=== PATIENT | female | born 2000 | race African-American/Black ===

== ENCOUNTER 2023-09-17 22:15 | Inpatient (IN) | payer OTHER ==
[2023-09-18 00:53] LABS: #Basophils 0.05 10x3/uL (0.0-0.2); #Eosinphils 0.04 10x3/uL (0.0-0.5); #Monocytes 0.84 10x3/uL (0.0-1.1); #Neutrophils 10.34 10x3/uL (1.5-8.4); %Basophils 0.4 % (0.0-2.0); %Eosinophils 0.3 % (0.0-6.0); %Lymphocytes 15.2 % (18.0-47.0); %Monocytes 6.3 % (0.0-10.0); %Neutrophils 77.5 % (40.0-75.0); Hematocrit 35.4 % (34.9-44.5); Hemoglobin 11.9 g/dL (12.0-15.5); Mean Corpuscular HGB CONC 33.6 g/dL (32.0-36.0); Mean Corpuscular Hemoglobin 28.9 pg (27.0-33.0); Mean Corpuscular Volume 85.9 fl (81.6-98.3); Mean Platelet Volume 8.4 fl (7.4-10.4); Platelet Count 335 10x3/uL (150-450); RBC Distribution Width 13.2 % (11.5-14.5); Red Blood Cell (RBC) Count 4.12 10x6/uL (3.90-5.03); White Blood Cell (WBC) Count 13.3 10x3/uL (3.5-10.5)
[2023-09-18 01:06] LABS: Bilirubin Neg (Negative); Blood, Urine 250 (Negative); Clarity Slightly Cloudy (Clear); Glucose, Urine (Dipstick) Normal (Negative); Ketone, Urine Negative (Negative); Leukocyte Negative (Negative); Nitrite Negative (Negative); Protein, Urine (Dipstick) 30 mg/dl (Neg-Trace); Specific Gravity, Urine 1.015 (1.005-1.030); Urobilinogen Normal mg/dL (Less than 2)
[2023-09-18 01:08] LABS: Pregnancy Test - Urine (BHCG) Negative (Negative); Pregu Control Background? CLEAR/WHITE (CLR/WHITE); Pregu Control Bar Appear? YES (CONTROL BAR); Specific Gravity 1.015 (1.002-1.036)
[2023-09-18 01:08] LABS: ALT (SGPT) 52 U/L (8-55); AST (SGOT) 63 U/L (5-34); Albumin 3.9 g/dL (3.5-5.0); Alkaline Phosphatase 50 U/L (40-110); Anion Gap 12 mmol/L (10-20); BUN (Urea Nitrogen) 12 mg/dL (7.0-18.7); Bilirubin, Total 0.3 mg/dL (0.2-1.2); Calc. Creatinine Clearance 0 mL/min (70-130); Calcium 9.3 mg/dL (7.8-10.44); Carbon Dioxide 24 mmol/L (22-29); Chloride 108 mmol/L (98-107); Estimated GFR 105; Globulin 3.5 g/dL (2.4-3.5); Glucose 101 mg/dL (70-105); Potassium 3.7 mmol/L (3.5-5.1); Protein, Total 7.4 g/dL (6.0-8.3); Sodium 140 mmol/L (136-145)
[2023-09-18 01:34] LABS: Bacteria/HPF None Seen HPF (None Seen); CAUTI Indications for Culture Pelvic or flank pain; WBC/HPF 0-3 HPF (0-3)
[2023-09-18 01:35] LABS: Urine Culture Reflex No No
[2023-09-18] MEDS ORDERED: Ondansetron PF 4 MG/2 ML Vial ONE (04:32)
[2023-09-18] MEDS ORDERED: Morphine 4 MG/ML VIAL ONE (04:32)
[2023-09-18 06:53] VITALS: BMI 24.6
[2023-09-18] MEDS ORDERED: Ondansetron ODT 4 MG TAB SL PRN (08:30)
[2023-09-18] MEDS ORDERED: Ondansetron PF 4 MG/2 ML Vial IVP PRN (08:30)
[2023-09-18] MEDS ORDERED: Iopamidol 300 61% 100 ML VIAL FS ONE (11:01)
[2023-09-18] MEDS: Morphine 4 MG/ML VIAL SLOW IVP PRN (11:21)
[2023-09-18] MEDS: Enoxaparin 40 MG (0.4 mL) SYRINGE SC SCH (11:22)
[2023-09-18] MEDS: traMADol HCl 50 MG TAB PO PRN (14:53)
[2023-09-20 16:22] VITALS: BP 108/61; TEMP 98.1
== END 2023-09-20 18:45 | disposition home or self-care (01) | DRG 201 ==
LOC: CSHERS 22:15 → CSHTELE 09-18 06:46 → OBSVTOIN 09-18 12:00
PROVIDERS: ADMIT Surgery; ATTEND Surgery
PROC: 0W9930Z Drainage of Right Pleural Cavity with Drainage Device, Percutaneous Approach (ICD-10-PCS; principal; 2023-09-18)
DX: S27.0XXA Traumatic pneumothorax, initial encounter (principal); M25.571 Pain in right ankle and joints of right foot; S00.81XA Abrasion of other part of head, initial encounter; Z90.89 Acquired absence of other organs; Z98.890 Other specified postprocedural states; Z88.0 Allergy status to penicillin
CPT/HCPCS: 32551; 71045; 71260; 74177; 80053; 81001; 81025; 85025; 96372; 96374; 96375; 96376; G0378; G0390; J1650; J2270; J2405; Q9967